=== PATIENT | male | born 1980 | race Caucasian/White ===

== ENCOUNTER 2019-08-18 08:50 | Day surgery (SDC) | payer OTHER ==
[~2019-08-18] VITALS: Ht 172.7 cm; Wt 86.5 kg
[2019-08-18] MEDS ORDERED: IV RINGERS,LACTATED 1000ML 1,000 ML IV SCH ×2 (09:15→09:50)
[2019-08-18] MEDS ORDERED: SCOPOLAMINE 1.5MG PATCH. TD ONE (09:15)
[2019-08-18] MEDS ORDERED: SUCCINYLCHOLINE 200 MG/10 ML VIAL. ONE (09:26)
[2019-08-18] MEDS ORDERED: DEXAMETHASONE SOD PHOS 4 MG/ML VIAL ONE ×2 (09:26→11:15)
[2019-08-18] MEDS ORDERED: LIDOCAINE 2% PF 5 ML VIAL. ONE (09:26)
[2019-08-18] MEDS ORDERED: PROPOFOL 20 ML IV ONE ×2 (09:26→11:40)
[2019-08-18] MEDS ORDERED: ONDANSETRON PF 4 MG/2 ML VIAL. ONE (09:26)
[2019-08-18] MEDS ORDERED: ROCURONIUM 50 MG/5 ML VIAL. ONE (09:26)
[2019-08-18] MEDS ORDERED: fentaNYL PF VIAL 100 MCG/2 ML VIAL ONE (09:27)
[2019-08-18 09:38] LABS: BASO # 0.1 x10^3/uL (0.0-0.2); BASO % 0 % (0-3); EOS # 0.1 x10^3/uL (0.0-0.7); EOS % 1 % (0-3); HEMATOCRIT 47.7 % (39.0-53.0); HEMOGLOBIN 16.5 g/dL (13.0-17.5); LYMPH # 2.6 x10^3/uL (1.0-4.8); LYMPH % 22 % (24-48); MEAN CORPUSCULAR HEMOGLOBIN 33 pg (25-35); MEAN CORPUSCULAR HGB CONC 35 g/dL (31-37); MEAN CORPUSCULAR VOLUME 95 fL (79-100); MONO # 1.1 x10^3/uL (0.0-1.1); MONO % 9 % (0-9); NEUT % 68 % (31-73); PLATELET COUNT 337 x10^3/uL (140-400); RED CELL DISTRIBUTION WIDTH 12.2 % (11.5-14.5); WHITE BLOOD COUNT 11.8 x10^3/uL (4.0-11.0)
[2019-08-18] MEDS ORDERED: BUPIVACAINE-EPI 0.5%-1:200000 MPF 30 ML VIAL. INJ ONE (09:45)
[2019-08-18 09:50] LABS: CALCIUM 9.7 mg/dL (8.5-10.1); CREATININE 1.2 mg/dL (0.7-1.3); GFR 68.1; POTASSIUM 3.8 mmol/L (3.5-5.1)
[2019-08-18] MEDS ORDERED: MIDAZOLAM HCL/PF 2 MG/2 ML VIAL. ONE (09:50)
[2019-08-18] MEDS ORDERED: ONDANSETRON PF 4 MG/2 ML VIAL. IVP ONE (10:00)
[2019-08-18] MEDS ORDERED: fentaNYL PF VIAL 100 MCG/2 ML VIAL IV PRN ×2 (10:00)
[2019-08-18] MEDS ORDERED: ONDANSETRON PF 4 MG/2 ML VIAL. IV PRN (10:00)
[2019-08-18] MEDS ORDERED: ceFAZolin 2GM PREMIX 2 GM/50 ML BAG IV ONE (10:00)
[2019-08-18] MEDS ORDERED: LIDOCAINE 1% PF 2 ML VIAL. ID PRN (10:00)
[2019-08-18] MEDS ORDERED: HYDROmorphone 2 MG/ML VIAL IV PRN (10:00)
[2019-08-18] MEDS ORDERED: MORPHINE SULFATE 2 MG/ML VIAL. IV PRN (10:00)
[2019-08-18] MEDS ORDERED: PROCHLORPERAZINE 10 MG/2 ML VIAL. IV PRN (10:00)
[2019-08-18 10:12] LABS: ALBUMIN 4.5 g/dL (3.4-5.0); DIRECT BILIRUBIN 0.2 mg/dL (0.0-0.2); TOTAL BILIRUBIN 0.7 mg/dL (0.2-1.0); TOTAL PROTEIN 8.6 g/dL (6.4-8.2)
[2019-08-18] MEDS ORDERED: IOHEXOL 300 MG/ML 50 ML VIAL. ONE (10:38)
[2019-08-18] MEDS ORDERED: SURGICEL HEMOSTAT 4X8 EACH. ONE (10:38)
[2019-08-18] MEDS ORDERED: GLUCAGON,HUMAN RECOMBINANT 1 MG/ML VIAL. ONE (10:38)
[2019-08-18] MEDS ORDERED: FAMOTIDINE 20 MG/2 ML VIAL ONE (11:13)
[2019-08-18] MEDS ORDERED: NEOSTIGMINE METHYLSULFATE 5 MG/5 ML SYRINGE. ONE (11:46)
[2019-08-18] MEDS ORDERED: KETOROLAC 30 MG/ML VIAL. ONE (11:47)
[2019-08-18] MEDS ORDERED: GLYCOPYRROLATE 1 MG/5 ML VIAL. ONE (11:47)
--- NOTE | 2019-08-18 11:59 | DISCH ---
DISCHARGE INSTRUCTIONS Condition on Discharge Condition on Discharge: Stable Activity After Discharge Activity Instructions for Disc: Activity as tolerated, Avoid exertion Driving Instructions after Dis: Do not drive (2-3 days) Diet after Discharge Diet after Discharge: Regular Wound Incision Care Wound/Incision Care: Ice to area for comfort Other wound/incision instructi: May shower Friday Follow-Up Follow Up With: Gilmer next week CONOR MADRIGAL MD Aug 18, 2019 11:59
[2019-08-18] MEDS ORDERED: SEVOFLURANE 31 TO 60 MINUTES. IH ONE (12:00)
--- NOTE | 2019-08-18 12:03 | RAD ---
EXAM: Intraoperative cholangiogram. HISTORY: Cholecystectomy. COMPARISON: None. FINDINGS: 4 fluoroscopic images were obtained during an intraoperative cholangiogram. The total fluoroscopy time was 0.12 minutes. There is contrast opacification of the biliary tree and proximal small bowel. There is no convincing retained stone. There is luminal irregularity involving the downstream common bile duct which may be due to a spasm or stricture. IMPRESSION: Intraoperative cholangiogram without a convincing retained stone. There is luminal irregularity involving the downstream common bile duct which may be due to a spasm or stricture. Electronically signed by: Liberty Paiz MD (08/18/2019 12:00 PM) [facility]
--- NOTE | 2019-08-18 12:22 | PDOC ---
BRIEF OPERATIVE NOTE Date: Aug 18, 2019 Pre-Op Diagnosis biliary dyskinesia Post-Op Diagnosis same Procedure Performed l/s cholecystectomy with cholangiograms Surgeon Gilmer Cloth Mercerizing Supervisor Gregory CORNEJO Anesthesia Type: General Blood Loss 10cc IV Fluid 400cc Specimens Obtained GB Findings supple GB, normal grams Complications none Operative Note Wk # [id number] CONOR MADRIGAL MD Aug 18, 2019 12:22
--- NOTE | 2019-08-18 12:33 | OP ---
DATE OF SURGERY: 08/18/2019 PREOPERATIVE DIAGNOSIS: Biliary dyskinesia. POSTOPERATIVE DIAGNOSIS: Biliary dyskinesia. PROCEDURE: Laparoscopic cholecystectomy with cholangiogram. SURGEON: Bryan Madrigal MD STAFF ANESTHESIOLOGIST: CLEMENTE Pickard ANESTHESIA: General endotracheal. ESTIMATED BLOOD LOSS: 10 mL. INTRAVENOUS FLUIDS: 400 mL. INDICATIONS: The patient is a 39-year-old with right upper quadrant pain, nausea and vomiting after greasy foods. He is brought for cholecystectomy in hopes of improving his symptoms. OPERATIVE FINDINGS: The liver was smooth and sharp. The gallbladder was supple. Cholangiogram showed some luminal irregularity downstream common duct, thought to be due to either spasm or stricture, there was prompt flow of contrast into the duodenum. DESCRIPTION OF PROCEDURE: The patient was brought to the operating suite, given a general endotracheal anesthetic and the abdomen prepped and draped in usual sterile fashion. An infraumbilical incision was infiltrated with local anesthetic, incised and a 5 mm Visiport used to gain access into the abdominal cavity, taking care to avoid injury to abdominal contents. Pneumoperitoneum established. Camera inserted. Inspection carried out with results as noted above. With the table in reverse Trendelenburg rolled to the left, the epigastric and midclavicular ports were placed under direct vision. The lateral port location was used for an "alligator" grasper. The gallbladder was retracted superolaterally and the cystic duct and cystic artery were exposed. The duct was clipped on the gallbladder side. Cholangiograms were made with results as noted above. In light of this, the catheter was removed. The cystic duct was clipped x 3 and divided, taking care to avoid injury or compromise the common duct. An anterior and posterior branch of the cystic artery were clipped and divided and gallbladder freed from bed with cautery dissection and placed in an EndoCatch bag. Table returned to level. Hemostasis in the fossa with cautery and a small piece of Surgicel. No evidence of bile leak seen. Gallbladder delivered through the epigastric incision, which was then closed with interrupted 0 Vicryl suture. At 6 cm intraabdominal pressure, no bleeding seen from the epigastric closure or from the midclavicular port site after its removal or from the location of the alligator grasper after it was taken out. Abdomen decompressed, camera slowly removed, no bleeding seen. Skin incisions closed with subcuticular 4-0 Monocryl. Steri-Strips and sterile dressings applied. The patient was awakened from his anesthetic and taken to the recovery room in satisfactory condition. BRYAN MADRIGAL MD DR: NYA/nehemias JOB#: [id number] / [id number]
[2019-08-18] MEDS ORDERED: DOCU50CA9 PO (13:10)
[2019-08-18] MEDS ORDERED: OXYC1TAB15 PO (13:11)
[2019-08-18] MEDS ORDERED: oxyCODONE/APAP 5/325 1 TAB TABLET PO ONE (13:15)
[2019-08-18 13:20] VITALS: BP 134/79
--- NOTE | 2019-08-20 00:06 | PATHOLOGY ---
[facility] Accession Number: [id number] . 01 Material submitted: . gallbladder - GALLBLADDER WITH CONTENTS . 01 Clinical history: . Right upper quadrant abdominal pain . 02 Diagnosis: "Gallbladder with contents", cholecystectomy: - Chronic cholecystitis with cholesterolosis. (CLW:pit; 08/19/2019) OLT 08/19/2019 1212 Local . 02 Electronically signed: . Pamela Sequeira MD, Pathologist NPI- [id number] . 01 Gross description: . The specimen is received in formalin, labeled "Khris Hope, gallbladder with contents". Received is an intact gallbladder measuring 9.0 x 3.6 x 3.4 cm in greatest dimensions displaying a blue-ayala serosal surface. Opening the specimen reveals a velvety, bile-stained mucosa with mild, diffuse cholesterolosis, and with a gallbladder wall thickness of 0.1 cm. Calculi are not present, and no masses or lesions are noted grossly. Assembler Gold Frame sections, to include the proximal margin, are submitted in cassette A1. (CAA; 08/18/2019) QA/QA 08/18/2019 1550 Local . 02 Pathologist provided ICD-10: K81.1, K82.4 . 02 CPT . 201732 Specimen Comment: A courtesy copy of this report has been sent to [phone], [phone] Specimen Comment: [id number] Specimen Comment: Report sent to / DR MILLAN Performed at: [facility] [address], [place] [id number] MD Ryan Beebe MD Phone: [phone] Performed at: [address] [facility] [address] [place], [place] [id number] MD Herbert Garcia MD Phone: [phone]
== END 2019-08-18 13:45 | disposition home or self-care (01) ==
LOC: SURG 08:50
PROVIDERS: ATTEND Surgery
DX: K82.8 Other specified diseases of gallbladder (principal); K80.10 Calculus of gallbladder with chronic cholecystitis without obstruction; K21.9 Gastro-esophageal reflux disease without esophagitis; Z85.47 Personal history of malignant neoplasm of testis
CPT/HCPCS: 36415; 47563; 74300; 80048; 80076; 85025; A7015; J0330; J0696; J1100; J1885; J2001; J2250; J2405; J2704; J2710; J3010; J3490; J7030; Q9967; J1610